=== PATIENT | female | born 1985 | race Caucasian/White ===

== ENCOUNTER → 2022-04-25 05:45 | Observation (INO) ==
[2022-04-25 02:42] LABS: Bilirubin,Urine Negative (Negative); Blood,Urine Negative (Negative); Clarity,Urine Clear (Clear); Color,Urine Light-Yellow (Yellow); Glucose,Urine (UA) Normal (Normal); Ketones,Urine Negative (Negative); Leukocyte Esterase,Urine Negative (Negative); Nitrite,Urine Negative (Negative); Protein,Urine Negative (Neg-Trace); Urobilinogen,Urine Normal (Normal)
[~2022-04-25 05:45] MED LIST: Betamethasone Acet/SodPhos 30 MG/5 ML VIAL IM SCH
== END | disposition home or self-care (01) ==
LOC: 1NENULAB
PROVIDERS: ADMIT Advanced Practice Midwife; ATTEND Advanced Practice Midwife

== ENCOUNTER 2022-06-08 16:31 | Observation (INO) | END 2022-06-08 18:28 | disposition home or self-care (01) | LOC: 1NENULAB | PROVIDERS: ADMIT Obstetrics & Gynecology; ATTEND Obstetrics & Gynecology ==

== ENCOUNTER 2022-06-13 20:11 | Inpatient (IN) ==
[2022-06-13 18:18] LABS: Bacteria,Urine Few per hpf (None-Few); Bilirubin,Urine Negative (Negative); Blood,Urine Negative (Negative); Clarity,Urine Turbid (Clear); Color,Urine Yellow (Yellow); Glucose,Urine (UA) Normal (Normal); Hyaline Casts,Urine Few per lpf (None Seen); Ketones,Urine Trace mg/dL (Negative); Leukocyte Esterase,Urine Moderate (Negative); Mucus,Urine Few per lpf (None-Few); Nitrite,Urine Negative (Negative); Protein,Urine 100 mg/dL (Neg-Trace); Renal Epithelial Cells,Urine Few per hpf (None-Few); Specific Gravity,Urine 1.027 (1.010-1.025); Squamous Epithelial Cell,Urine Many per hpf (None-Few); Transitional Epi Cells,Urine Few per hpf (None-Few); WBC,Urine 15-30 per hpf (0-3)
[~2022-06-13 20:11] MED LIST changes: +*HR* FentaNYL (PF) 100 MCG/2 ML VIAL IVP PRN; +*HR* Labetalol 20 MG/4 ML SYRINGE IVP ONE; +*HR* Labetalol 20 MG/4 ML SYRINGE IVP PRN; +Azithromycin 500 MG in 0.9 % Sodium Chloride 250 ML IVPB PRN; -Betamethasone Acet/SodPhos 30 MG/5 ML VIAL IM SCH; +Calcium Gluconate 1,000 MG/10 ML VIAL IVP PRN; +Famotidine 20 MG/2 ML VIAL IVP PRN; +Lidocaine 1% 20 ML MDV INFILT PRN; +Metoclopramide 10 MG/2 ML VIAL IVP PRN; +Naloxone 0.4 MG/ML INJ IVP PRN; +Ondansetron 4 MG/2 ML VIAL IVP PRN; +Ringers Solution, Lactated 1,000 ML ONE
[2022-06-13] MEDS ORDERED: NIFEdipine Immed Rel 10 MG CAPSULE PO ONE (20:29)
[2022-06-13 21:03] LABS: Basophils # 0.1 K/mcL (0.0-0.2); Basophils % 0.3 %; Eosinophils # 0.2 K/mcL (0.0-0.6); Eosinophils % 1.1 %; Hematocrit 38.6 % (35.3-44.9); Hemoglobin 12.7 g/dL (11.5-15.4); Immature Granulocytes % 0.7 % (0-4); Lymphocytes # 3.2 K/mcL (0.6-4.6); Lymphocytes % 21.1 %; Mean Corpuscular HGB Conc 32.9 g/dL (31.6-35.5); Mean Corpuscular Hemoglobin 28.3 pg (28.0-33.3); Mean Corpuscular Volume 86.2 fL (83.0-100.0); Mean Platelet Volume 10.2 fL (9.4-12.4); Monocytes # 0.9 K/mcL (0.0-1.3); Monocytes % 5.7 %; Neutrophils # 10.7 K/mcL (1.6-8.9); Platelet Count 438 K/mcL (140-400); Red Blood Count 4.48 M/mcL (3.82-4.97); Red Cell Distribution Width 14.4 % (11.5-14.5); Segmented Neutrophils % 71.1 %
[2022-06-13] MEDS: Magnesium Sulf 20 gm/SW 500mL 20 GM/500 ML IV.SOLN IVC SCH (21:26)
[2022-06-13 22:04] LABS: Creatinine,Urine 195 mg/dL; Protein/Creatinine Ratio,Urine 0.37 mg/mg (0.00-0.20)
[2022-06-13 22:10] LABS: Amphetamine Screen,Urine Negative ng/mL (Cutoff=1000); Barbiturate Screen,Urine Negative ng/mL (Cutoff=200); Benzodiazepines Screen,Urine Negative ng/mL (Cutoff=200); Cannabinoid Screen,Urine Positive ng/mL (Cutoff = 50); Cocaine Screen,Urine Negative ng/mL (Cutoff= 300); Opiate Screen,Urine Positive ng/mL (Cutoff=300); Phencyclidine Screen,Urine Negative ng/mL (Cutoff=25)
[2022-06-13] MEDS ORDERED: MAXALT 10 MG PO PRN (22:22)
[2022-06-13] MEDS ORDERED: Propranolol LA (24 HR) 60 MG CAP.SA.24H PO PRN (22:37)
[2022-06-13] MEDS ORDERED: *HR* HYDROcodone/Acet 10/325 mg TABLET PO PRN (22:40)
[2022-06-13] MEDS ORDERED: Morphine Sulfate ER (12 HR) 15 MG TABLET.ER PO SCH (22:45)
[2022-06-14] MEDS ORDERED: Oxytocin 30 UNIT/503 ML BAG IVC ONE (00:31)
[2022-06-14] MEDS: Oxytocin 30 UNIT/503 ML BAG IVC SCH (00:40)
[2022-06-14] MEDS ORDERED: Penicillin G Potassium 5,000,000 UNIT in 0.9 % Sodium Chloride Mini Bag 100 ML IVPB ONE (02:34)
[2022-06-14] MEDS: Ringers Solution, Lactated 1,000 ML IVC SCH (02:56)
[2022-06-14] MEDS: tiZANidine 4 MG TABLET PO SCH ×3 (03:00→17:07)
[2022-06-14] MEDS ORDERED: Epidural Premix (fent/bupiv) 110 ML EP ONE (04:08)
[2022-06-14] MEDS ORDERED: Ropivacaine/PF 0.2% 20 ML VIAL ONE (04:09)
[2022-06-14] MEDS ORDERED: Ropivacaine/PF 0.2% 20 ML VIAL EP ONE (04:55)
[2022-06-14] MEDS ORDERED: *HR* FentaNYL (PF) 100 MCG/2 ML VIAL EP ONE (04:55)
[2022-06-14] MEDS ORDERED: EPHEDrine 50 MG/ML VIAL IVP PRN (04:55)
[2022-06-14] MEDS ORDERED: Naloxone 0.4 MG/ML INJ IVP PRN (04:55)
[2022-06-14] MEDS ORDERED: Ondansetron 4 MG/2 ML VIAL IVP PRN (04:55)
[2022-06-14] MEDS: *HR* HYDROcodone/Acet 10/325 mg TABLET PO SCH ×2 (06:27→14:40)
[2022-06-14] MEDS: Morphine Sulfate ER (12 HR) 15 MG TABLET.ER PO SCH ×3 (06:28→14:40)
[2022-06-14] MEDS: Epidural Premix (fent/bupiv) 110 ML EP SCH ×3 (06:33→19:19)
[2022-06-14] MEDS: Magnesium Sulf 20 gm/SW 500mL 20 GM/500 ML IV.SOLN IVC SCH ×2 (06:34→17:05)
[2022-06-14] MEDS: Penicillin G Potassium 2,500,000 UNIT/105 ML MLS IVPB SCH ×4 (06:41→19:38)
[2022-06-14 09:51] LABS: Alanine Aminotransferase 8 Units/L (7-52); Aspartate Amino Transferase 11 Units/L (13-39); BUN/Creatinine Ratio 10 (6-26); Blood Urea Nitrogen 6 mg/dL (6-20); Lactate Dehydrogenase 121 Units/L (140-271); Magnesium 4.5 mg/dL (1.6-2.6); Uric Acid 5.6 mg/dL (2.3-7.6)
[2022-06-14] MEDS ORDERED: *HR* Propofol 200 MG/20 ML VIAL IVP ONE ×2 (23:50)
[2022-06-14] MEDS ORDERED: Lidocaine -MPF 2% 2 ML VIAL ONE (23:50)
[2022-06-14] MEDS ORDERED: *HR* Succinylcholine 200 MG/10 ML VIAL IVP ONE (23:50)
[2022-06-15] MEDS ORDERED: Ringers Solution, Lactated 1,000 ML ONE (00:15)
[2022-06-15] MEDS ORDERED: *HR* Rocuronium Bromide 50 MG/5 ML VIAL ONE (00:27)
[2022-06-15] MEDS ORDERED: Ondansetron 4 MG/2 ML VIAL ONE (00:29)
[2022-06-15] MEDS ORDERED: Acetaminophen IV 1,000 MG/100 ML BAG IVPB ONE (00:42)
[2022-06-15] MEDS ORDERED: *HR* HYDROmorphone PF 0.5 MG/0.5 ML SYRINGE IVP PRN (01:01)
[2022-06-15] MEDS ORDERED: *HR* Nalbuphine 10 MG/ML AMPUL IV PRN (01:02)
[2022-06-15] MEDS ORDERED: *HR* Morphine Sulfate/PF 10 MG/10 ML AMPUL ONE (01:03)
[2022-06-15] MEDS ORDERED: Neostigmine Methylsulfate 3 MG/3 ML SYRINGE ONE (01:05)
[2022-06-15] MEDS ORDERED: Ketorolac 30 MG/ML VIAL ONE (01:09)
[2022-06-15] MEDS ORDERED: *HR* Propofol 200 MG/20 ML VIAL IVP ONE (01:14)
[2022-06-15] MEDS ORDERED: *HR* HYDROMORPHONE 2 MG/ML VIAL ONE (01:30)
[2022-06-15] MEDS ORDERED: *HR* HYDROmorphone PCA *PREMADE* 20 MG/1MG/ML (20mL) PCA VIAL IVC PRN ×3 (01:41→04:25)
[2022-06-15] MEDS ORDERED: Ringers Solution, Lactated 1,000 ML IVC SCH (04:25)
[2022-06-15] MEDS ORDERED: Metoclopramide 10 MG/2 ML VIAL IVP PRN (04:25)
[2022-06-15] MEDS ORDERED: Simethicone 80 MG TAB.CHEW PO PRN (04:25)
[2022-06-15] MEDS ORDERED: Ondansetron 4 MG/2 ML VIAL IVP PRN (04:25)
[2022-06-15] MEDS ORDERED: Rho Immune Globulin 1,500 UNIT SYRINGE IM ONE (04:25)
[2022-06-15] MEDS: Acetaminophen 325 MG TABLET PO SCH ×2 (04:46→11:42)
[2022-06-15] MEDS: Oxytocin 30 UNIT/503 ML BAG IVC SCH ×3 (04:46→06:18)
[2022-06-15] MEDS: Ibuprofen 600 MG TABLET PO SCH ×3 (04:46→19:34)
[2022-06-15] MEDS: Magnesium Sulf 20 gm/SW 500mL 20 GM/500 ML IV.SOLN IVC SCH ×3 (04:47→22:11)
[2022-06-15] MEDS: Epidural Premix (fent/bupiv) 110 ML EP SCH (04:47)
[2022-06-15] MEDS: tiZANidine 4 MG TABLET PO SCH (04:48)
[2022-06-15] MEDS: Penicillin G Potassium 2,500,000 UNIT/105 ML MLS IVPB SCH (04:48)
[2022-06-15] MEDS: *HR* HYDROcodone/Acet 10/325 mg TABLET PO SCH (04:49)
[2022-06-15] MEDS: Ringers Solution, Lactated 1,000 ML IVC SCH ×2 (04:49→04:50)
[2022-06-15] MEDS: cephALEXin 500 MG CAPSULE PO SCH ×2 (07:44→15:35)
[2022-06-15] MEDS: metroNIDAZOLE 500 MG TABLET PO SCH ×3 (07:45→20:07)
[2022-06-15] MEDS: Prenatal Vit/FA 1 EACH TABLET PO SCH (07:45)
[2022-06-15] MEDS: *HR* OxyCODONE Immed Rel 5 MG TABLET PO PRN ×4 (10:02→23:55)
[2022-06-15] MEDS ORDERED: Ketorolac 30 MG/ML VIAL IVP PRN (22:34)
[2022-06-16 04:00] LABS: Basophils % 0.2 %; Eosinophils # 0.1 K/mcL (0.0-0.6); Eosinophils % 0.3 %; Hematocrit 31.5 % (35.3-44.9); Immature Granulocytes % 0.6 % (0-4); Lymphocytes # 2.9 K/mcL (0.6-4.6); Lymphocytes % 15.5 %; Mean Corpuscular HGB Conc 31.7 g/dL (31.6-35.5); Mean Corpuscular Hemoglobin 27.9 pg (28.0-33.3); Mean Platelet Volume 10.1 fL (9.4-12.4); Monocytes # 0.7 K/mcL (0.0-1.3); Monocytes % 3.8 %; Neutrophils # 14.9 K/mcL (1.6-8.9); Platelet Count 408 K/mcL (140-400); Red Blood Count 3.58 M/mcL (3.82-4.97); Red Cell Distribution Width 14.4 % (11.5-14.5); Segmented Neutrophils % 79.6 %; White Blood Count 18.7 K/mcL (4.3-11.1)
[2022-06-16] MEDS: *HR* OxyCODONE Immed Rel 5 MG TABLET PO PRN (04:48)
[2022-06-16] MEDS: cephALEXin 500 MG CAPSULE PO SCH ×3 (08:18→18:56)
[2022-06-16] MEDS: metroNIDAZOLE 500 MG TABLET PO SCH ×2 (08:26→18:55)
[2022-06-16] MEDS: *HR* Enoxaparin 60 MG/0.6 ML SYRINGE SQ SCH ×2 (08:27→21:10)
[2022-06-16] MEDS: Prenatal Vit/FA 1 EACH TABLET PO SCH (08:33)
[2022-06-16] MEDS: NIFEdipine XL (24 HR) 30 MG TAB.ER.24 PO SCH (10:30)
[2022-06-16] MEDS: Ketorolac 30 MG/ML VIAL IM SCH ×2 (11:24→18:57)
[2022-06-17] MEDS: Acetaminophen 325 MG TABLET PO SCH ×2 (06:09→21:06)
[2022-06-17] MEDS ORDERED: cephALEXin 500 MG CAPSULE PO SCH (09:00)
[2022-06-17] MEDS ORDERED: metroNIDAZOLE 500 MG TABLET PO SCH (09:00)
[2022-06-17] MEDS: Ketorolac 30 MG/ML VIAL IM SCH ×3 (11:47→23:28)
[2022-06-17] MEDS: NIFEdipine XL (24 HR) 30 MG TAB.ER.24 PO SCH (16:58)
[2022-06-17] MEDS: Prenatal Vit/FA 1 EACH TABLET PO SCH (16:58)
[2022-06-17] MEDS: *HR* Enoxaparin 60 MG/0.6 ML SYRINGE SQ SCH (21:07)
[2022-06-18 07:43] VITALS: BP 112/70; PULSE 88; TEMP 97.9; O2SAT 98
[2022-06-18] MEDS: *HR* Enoxaparin 60 MG/0.6 ML SYRINGE SQ SCH (08:26)
[2022-06-18] MEDS: NIFEdipine XL (24 HR) 30 MG TAB.ER.24 PO SCH (08:27)
[2022-06-18] MEDS: Prenatal Vit/FA 1 EACH TABLET PO SCH (08:27)
[2022-06-18] MEDS: Ketorolac 30 MG/ML VIAL IM SCH (08:29)
[2022-06-18] MEDS: Ibuprofen 600 MG TABLET PO SCH (08:29)
[2022-06-18] MEDS: Acetaminophen 325 MG TABLET PO SCH (08:29)
== END 2022-06-18 09:54 | disposition home or self-care (01) | DRG 788 ==
LOC: 1NENULAB → 1NENUOBS 06-15 04:24
PROVIDERS: ADMIT Obstetrics & Gynecology; ATTEND Obstetrics & Gynecology